=== PATIENT | female | born 1935 | race Caucasian/White ===

== ENCOUNTER 2017-11-18 15:01 | Emergency (ER) | payer MEDICARE, BC ==
--- NOTE | 2017-11-18 15:49 | RAD ---
PORTABLE CHEST: 11/18/17 HISTORY: Mental status change. Lungs appear clear. No infiltrate or vascular congestion. Heart size within normal range. Mild aortic calcification. IMPRESSION: No acute chest findings. POS: [facility]
--- NOTE | 2017-11-18 15:59 | CT ---
HEAD CT WITHOUT CONTRAST: Date: 11-18-17 Comparison: None. History: Altered mental status. Technique: Serial axial CT imaging at 5 mm intervals from vertex through skull base without contrast. FINDINGS: The imaged paranasal sinuses and mastoid air cells are well aerated. There is no displaced calvarial fracture. There is no intracranial hemorrhage, midline shift, or mass effect. There is mild prominenc e of the ventricular system. There is periventricular and deep white matter hypodensities suggesting small vessel disease. IMPRESSION: No intracranial hemorrhage. Chronic appearing findings as described above. POS: [facility]
[2017-11-18 16:05] LABS: ALT (SGPT) 15 U/L (8-55); AST (SGOT) 17 U/L (5-34); Alkaline Phosphatase 54 U/L (40-150); Anion Gap 10 mmol/L (10-20); BUN (Urea Nitrogen) 9 mg/dL (9.8-20.1); Bilirubin, Total 0.8 mg/dL (0.2-1.2); Calc. Creatinine Clearance 0 mL/min (70-130); Calcium 8.6 mg/dL (7.8-10.44); Carbon Dioxide 25 mmol/L (23-31); Chloride 103 mmol/L (98-107); Estimated GFR-MDRD 76; Globulin 2.3 g/dL (2.4-3.5); Glucose 91 mg/dL (83-110); Potassium 3.9 mmol/L (3.5-5.1); Protein, Total 6.3 g/dL (6.0-8.3); Sodium 134 mmol/L (136-145)
[2017-11-18 16:14] LABS: Bilirubin Negative (Negative); Blood, Urine Negative (Negative); Clarity CLEAR (Clear); Glucose, Urine (Dipstick) Negative (Negative); Leukocyte Negative (Negative); Nitrite Negative (Negative); Protein, Urine (Dipstick) Negative (Neg-Trace); Specific Gravity, Urine 1.013 (1.002-1.036); pH, Urine 5.5 (5.0-9.0)
[2017-11-18 16:29] LABS: #Eosinphils 0.1 thou/uL (0.0-0.7); #Lymphocytes 2.3 thou/uL (1.20-3.40); #Monocytes 0.6 thou/uL (0.11-0.59); #Neutrophils 4.9 thou/uL (1.40-6.50); %Basophils 0.6 % (0.0-1.0); %Eosinophils 1.5 % (0.0-10.0); %Lymphocytes 28.6 % (21.0-51.0); %Monocytes 7.9 % (0.0-10.0); %Neutrophils 61.4 % (42.0-75.0); Hemoglobin 11.5 g/dL (12.0-16.0); Mean Corpuscular HGB CONC 33.5 g/dL (32.0-36.0); Mean Corpuscular Hemoglobin 28.2 pg (27.0-31.0); Mean Corpuscular Volume 84.1 fl (81.0-99.0); Platelet Count 271 thou/uL (130-400); RBC Distribution Width 12.2 % (11.5-14.5); Red Blood Cell (RBC) Count 4.06 mill/uL (4.20-5.40)
== END 2017-11-18 17:59 | disposition home or self-care (01) ==
LOC: ERS 15:01
DX: R41.82 Altered mental status, unspecified (principal); E11.9 Type 2 diabetes mellitus without complications; E03.9 Hypothyroidism, unspecified; E78.5 Hyperlipidemia, unspecified; I10 Essential (primary) hypertension; Z79.899 Other long term (current) drug therapy; Z79.84 Long term (current) use of oral hypoglycemic drugs
CPT/HCPCS: 36415; 36416; 51701; 70450; 71045; 80053; 81003; 84443; 85025; 93005; 96360; 96361; A4353

== ENCOUNTER 2017-12-13 18:53 | Emergency (ER) | payer MEDICARE, BC ==
[~2017-12-13 18:53] MED LIST: ISOVUE-370 76%-LOCM 1 ML ONE
[2017-12-13 19:34] LABS: #Basophils 0.1 thou/uL (0.0-0.2); #Eosinphils 0.1 thou/uL (0.0-0.7); #Lymphocytes 2.3 thou/uL (1.20-3.40); #Monocytes 0.7 thou/uL (0.11-0.59); #Neutrophils 5.7 thou/uL (1.40-6.50); %Basophils 0.6 % (0.0-1.0); %Eosinophils 1.2 % (0.0-10.0); %Lymphocytes 26.3 % (21.0-51.0); %Monocytes 8.1 % (0.0-10.0); %Neutrophils 63.9 % (42.0-75.0); Hemoglobin 11.5 g/dL (12.0-16.0); Mean Corpuscular HGB CONC 33.8 g/dL (32.0-36.0); Mean Corpuscular Hemoglobin 28.2 pg (27.0-31.0); Mean Corpuscular Volume 83.4 fL (78.0-98.0); Mean Platelet Volume 6.6 fL (7.4-10.4); Platelet Count 319 thou/uL (130-400); White Blood Cell (WBC) Count 8.9 thou/uL (4.8-10.8)
[2017-12-13 19:55] LABS: ALT (SGPT) 12 U/L (8-55); AST (SGOT) 14 U/L (5-34); Alkaline Phosphatase 52 U/L (40-150); Anion Gap 12 mmol/L (10-20); BUN (Urea Nitrogen) 12 mg/dL (9.8-20.1); Bilirubin, Total 0.5 mg/dL (0.2-1.2); Calc. Creatinine Clearance 0 mL/min (70-130); Calcium 8.9 mg/dL (7.8-10.44); Carbon Dioxide 26 mmol/L (23-31); Chloride 104 mmol/L (98-107); Estimated GFR-MDRD 76; Globulin 2.2 g/dL (2.4-3.5); Glucose 97 mg/dL (83-110); Lipase 18 U/L (8-78); Protein, Total 6.2 g/dL (6.0-8.3); Sodium 138 mmol/L (136-145)
[2017-12-13 21:37] LABS: Bilirubin Negative (Negative); Blood, Urine Negative (Negative); Clarity CLEAR (Clear); Glucose, Urine (Dipstick) Negative (Negative); Leukocyte Small (Negative); Nitrite Negative (Negative); Protein, Urine (Dipstick) Negative (Neg-Trace); Specific Gravity, Urine 1.027 (1.002-1.036); pH, Urine 5.5 (5.0-9.0)
[2017-12-13 21:39] LABS: Bacteria/HPF None Seen HPF (None Seen); Hyaline Casts/LPF 0-3 HYALINE CAST LPF (0-3 Hyaline); RBC/HPF 0-3 HPF (0-3); Squamous Epithelial 0-3 HPF (0-3); WBC/HPF 0-3 HPF (0-3)
--- NOTE | 2017-12-13 22:33 | CT ---
CT ABDOMEN AND PELVIS WITH IV CONTRAST: 12/13/17 HISTORY: Nausea, vomiting, diarrhea, abdominal pain. FINDINGS: There are mild dependent changes in the lung bases. A calcified granuloma is seen in the liver. There are a few small low density lesions in the liver which are statistically likely to represent benign findings in the absence of known malignancy. A peripheral subcapsular blush in the right lateral live r lobe is likely vascular variant. No calcified gallstones are seen. The spleen, pancreas adrenal gla nds appear normal. There are cysts in the kidneys bilaterally. No free air, free fluid or lymphadenopathy is noted in the abdomen or pelvis. There are vascular calc ifications without evidence of aneurysmal dilatation of the abdominal aorta. The patient is post hyst erectomy. The urinary bladder is well distended and grossly unremarkable. there is sigmoid diverticul osis without evidence of diverticulitis. There are vascular calcifications without evidence of aneury smal dilatation of the abdominal aorta. Degenerative changes are present in the spine. IMPRESSION: 1. Small low density lesions in the liver. 2. Bilateral renal cysts. 3. Sigmoid diverticulosis. POS: [facility]
== END 2017-12-14 00:27 | disposition home or self-care (01) ==
LOC: ERS 18:53
DX: K57.30 Diverticulosis of large intestine without perforation or abscess without bleeding (principal); N28.1 Cyst of kidney, acquired; E11.9 Type 2 diabetes mellitus without complications; E03.9 Hypothyroidism, unspecified; E78.5 Hyperlipidemia, unspecified; I10 Essential (primary) hypertension; Z79.899 Other long term (current) drug therapy; Z79.84 Long term (current) use of oral hypoglycemic drugs
CPT/HCPCS: 36415; 74177; 80053; 81003; 81015; 83690; 85025; 93005